=== PATIENT | male | born 1960 | race Caucasian/White ===

== ENCOUNTER 2023-02-09 22:36 | Inpatient (IN) | payer OTHER ==
[2023-02-09] MEDS ORDERED: Sodium Chloride 0.9% 1,000 ML IV ONE (22:57)
[2023-02-09 23:14] LABS: BASOPHILS ABSOLUTE AUTO 0.08 K/uL (0.02-0.10); BASOPHILS PERCENT AUTO 1.1 % (0.0-0.5); EOSINOPHILS ABSOLUTE AUTO 0.15 K/uL (0.04-0.40); HEMATOCRIT 35.1 % (40.0-54.0); HEMOGLOBIN 12.3 g/dL (13.0-18.0); LYMPHOCYTES PERCENT AUTO 33.4 % (20.0-40.0); MEAN CORPUSCULAR HEMOGLOBIN 32.9 pg (27.0-32.0); MEAN CORPUSCULAR VOLUME 94 fL (76-96); MEAN PLATELET VOLUME 12.7 fL (6.0-10.0); MONOCYTES ABSOLUTE AUTO 0.58 K/uL (0.20-0.80); MONOCYTES PERCENT AUTO 7.7 % (3.0-10.0); NEUTROPHILS ABSOLUTE AUTO 4.18 K/uL (2.00-7.50); NEUTROPHILS PERCENT AUTO 55.8 % (45.0-70.0); RED BLOOD CELL COUNT 3.74 M/uL (4.50-6.50); RED CELL DISTRIBUTION WIDTH 12.4 % (11.0-16.0); WHITE BLOOD CELL COUNT,WBC 7.5 K/uL (4.0-11.0)
[2023-02-09 23:25] LABS: MAGNESIUM 1.7 mg/dL (1.8-2.4); PHOSPHORUS 3.1 mg/dL (2.5-4.9)
[2023-02-09 23:29] LABS: APPEARANCE,URINE CLEAR (CLEAR); BILIRUBIN,URINE NEGATIVE (NEGATIVE); COLOR,URINE YELLOW; GLUCOSE,URINE 500 mg/dL (NEGATIVE); KETONES,URINE NEGATIVE (NEGATIVE); LEUKOCYTE ESTERASE,URINE NEGATIVE (NEGATIVE); NITRITE,URINE NEGATIVE (NEGATIVE); OCCULT BLOOD,URINE TRACE-INTACT (NEGATIVE); PROTEIN,URINE NEGATIVE (NEGATIVE)
[2023-02-09 23:30] LABS: LACTIC ACID 4.8 mmol/L (0.4-2.0)
[2023-02-09] MEDS ORDERED: Sodium Chloride 0.9% 10 ML Syringe FLUSH PRN (23:30)
[2023-02-09 23:33] LABS: A/G RATIO 0.5 (0.8-2.0); ALBUMIN 2.8 g/dL (3.4-5.0); ANION GAP 16.3 mmol/L (5.0-15.0); BILIRUBIN TOTAL 1.6 mg/dL (0.0-1.0); CARBON DIOXIDE,CO2 19.2 mmol/L (21.0-32.0); CREATININE 2.01 mg/dL (0.70-1.30); EST CRCL DRUG DOSING (CG) 41.29 mL/min; POTASSIUM,K 4.5 mmol/L (3.5-5.1); PROTEIN TOTAL,TP 8.1 g/dL (6.4-8.2)
[2023-02-09 23:34] LABS: PLATELET COUNT,PLT 88 K/uL (150-400)
[2023-02-09 23:36] LABS: RBC,URINE 0-5 /HPF; WBC,URINE NOT SEEN /HPF
[2023-02-09] MEDS ORDERED: Thiamine 100 MG in Sodium Chloride 0.9% 100 ML IV ONE (23:52)
[2023-02-10] LABS: INFLUENZA A NAA NEGATIVE (NEGATIVE); INFLUENZA B NAA NEGATIVE (NEGATIVE)
[2023-02-10 00:09] LABS: CORONAVIRUS COVID-19 NAA NEGATIVE (NEGATIVE)
[2023-02-10] MEDS ORDERED: Sodium Chloride 0.9% 1,000 ML IV ONE (00:10)
[2023-02-10 00:30] LABS: BASE EXCESS ARTERIAL -7.6 (-2-2); BICARBONATE,ARTERIAL 16.8 mmol/L (22-26); O2 SATURATION ARTERIAL 97.1 % (95-98); PO2 ARTERIAL 87.8 mmHg (80-105)
[2023-02-10] MEDS ORDERED: LORazepam 2 MG/ML SDV ONE (01:16)
[2023-02-10] MEDS: NS + KCl 20mEq/L 1,000 ML IV SCH ×2 (01:20→03:48)
[2023-02-10] MEDS ORDERED: LORazepam 2 MG/ML SDV IVPUSH ONE (01:28)
[2023-02-10] MEDS ORDERED: 50% Dextrose in Water 50 ML Syringe IVPUSH PRN (01:52)
[2023-02-10] MEDS ORDERED: Insulin Regular, Human 100 Units/ML 3 ML Vial IV ONE (01:52)
[2023-02-10] MEDS ORDERED: Glucagon,Human Recombinant 1 MG Vial IM PRN (01:52)
[2023-02-10 02:33] LABS: ANION GAP 16.7 mmol/L (5.0-15.0); BUN/CREATININE RATIO 8.7 (6-25); CALCIUM 8.1 mg/dL (8.5-10.1); CARBON DIOXIDE,CO2 17.6 mmol/L (21.0-32.0); CREATININE 1.72 mg/dL (0.70-1.30); EST CRCL DRUG DOSING (CG) 48.25 mL/min; POTASSIUM,K 4.3 mmol/L (3.5-5.1)
== END 2023-02-10 04:25 | DRG 639 ==
LOC: LB.ED 22:36 → LB.MS 23:46 → UNDOADMIN 02-10 00:49 → UNDODISIN 02-10 04:25
PROVIDERS: ADMIT Surgery; ATTEND Surgery
DX: E11.00 Type 2 diabetes mellitus with hyperosmolarity without nonketotic hyperglycemic-hyperosmolar coma (NKHHC) (principal); I10 Essential (primary) hypertension; R56.9 Unspecified convulsions; Z88.8 Allergy status to other drugs, medicaments and biological substances; W01.10XA Fall on same level from slipping, tripping and stumbling with subsequent striking against unspecified object, initial encounter
CPT/HCPCS: 0240U; 36415; 36600; 70450; 71045; 80048; 80053; 81001; 82009; 82803; 82947; 83605; 83690; 83735; 84100; 85025; 93005; J1815-GY; J2060; J3411; J3475; J3480; J3490; J7030